=== PATIENT | male | born 1965 | race Caucasian/White ===

== ENCOUNTER → 2023-06-03 07:16 | Outpatient (REF) | payer BC, SELFPAY ==
[2023-06-04 22:22] LABS: % Free Testosterone 1.4 % (1.6-2.9); Free Testosterone 1 pg/mL (47-244); Sex Hormone Binding Globulin 44 nmol/L (19-76); Total Testosterone 6 ng/dL (300-720)
== END ==
LOC: REG 07:16
PROVIDERS: ATTENDING PHYSICIAN Anesthesiology Pain Medicine; FAMILY PHYSICIAN Family Medicine
DX: M54.12 Radiculopathy, cervical region (principal); M25.561 Pain in right knee; Z51.81 Encounter for therapeutic drug level monitoring; G89.4 Chronic pain syndrome; F11.90 Opioid use, unspecified, uncomplicated; R79.89 Other specified abnormal findings of blood chemistry
CPT/HCPCS: 36415; 84270; 84402; 84403

== ENCOUNTER → 2023-10-09 07:04 | Outpatient (REF) | payer BC, SELFPAY ==
[2023-10-09 07:51] LABS: % Basophils 0.8 % (0-2); % Eosinophils 7.4 % (0-6); % Immature Granulocytes 0.2 % (0-0.5); % Lymphocytes 18.1 % (20.5-51.1); % Monocytes 8.1 % (1.7-9.3); % Neutrophils 65.4 % (42.2-75.2); Absolute Basophils 0.1 10^3/uL (0-0.2); Absolute Eosinophils 0.4 10^3/uL (0-0.7); Absolute Lymphocytes 1.1 10^3/uL (1.2-3.4); Absolute Monocytes 0.5 10^3/uL (0.1-0.6); Absolute Neutrophils 3.9 10^3/uL (1.4-6.5); Hemoglobin 12.7 g/dL (13.0-18.0); Mean Corp Hgb Conc. 34.3 g/dL (33.0-37.0); Mean Corpuscular Hgb 30.8 pg (27.0-31.0); Mean Corpuscular Volume 89.8 fL (80.0-94.0); Nucleated Red Blood Cells % 0 % (-); Platelet Count 197 10^3/uL (130-400); Red Blood Cell Count 4.12 10^6/uL (4.70-6.10); Red Cell Dist. Width 12.8 % (11.5-14.5); White Blood Cell Count 5.9 10^3/uL (4.8-10.8)
[2023-10-09 08:14] LABS: ALT (SGPT) 13 U/L (0-50); AST (SGOT) 19 U/L (17-59); Albumin 4.2 g/dl (3.5-5.0); Alkaline Phosphatase 59 U/L (38-126); Blood Urea Nitrogen 17 mg/dl (9-20); Calcium 9.3 mg/dl (8.4-10.2); Carbon Dioxide 27 mmol/L (22-30); Chloride 103 mmol/L (98-107); Glucose 110 mg/dl (70-99); HDL Cholesterol 60 mg/dl; LDL Cholesterol, Calculated 101 mg/dl; Potassium 4.1 mmol/L (3.5-5.1); Sodium 142 mmol/L (135-145); Total Bilirubin 0.4 mg/dl (0.2-1.3); Total Cholesterol 189 mg/dl (50-199); Total Protein 6.6 g/dl (6.3-8.2); Triglyceride 141 mg/dl (10-149); Very Low Density Lipoprotein 28 mg/dl (0-30); eGFR > 60.00
[2023-10-09 08:41] LABS: TSH 2.32 uIU/ml (0.47-4.68)
[2023-10-09 09:04] LABS: Glycohemoglobin (HgbA1c) 5.5 % (4.0-5.6)
[2023-10-09 10:51] LABS: Vitamin B12 305 pg/ml (239-931)
== END ==
LOC: REG 07:04
PROVIDERS: ATTENDING PHYSICIAN Family Medicine
DX: R73.03 Prediabetes (principal)
CPT/HCPCS: 36415; 80053; 80061; 82607; 83036; 84443; 85025

== ENCOUNTER 2024-04-22 06:07 | Day surgery (SDC) | payer BC, SELFPAY ==
[2024-03-30 11:12] LABS: Hematocrit 38.8 % (39.0-52.0); Hemoglobin 13.2 g/dL (13.0-18.0); Mean Corpuscular Hgb 30.3 pg (27.0-31.0); Mean Platelet Volume 10.1 fL (7.4-10.4); Platelet Count 202 10^3/uL (130-400); Red Blood Cell Count 4.36 10^6/uL (4.70-6.10); Red Cell Dist. Width 12.6 % (11.5-14.5)
[2024-03-30 11:59] LABS: ALT (SGPT) 18 U/L (0-50); AST (SGOT) 38 U/L (17-59); Albumin 4.9 g/dl (3.5-5.0); Alkaline Phosphatase 59 U/L (38-126); Blood Urea Nitrogen 17 mg/dl (9-20); Calcium 9.3 mg/dl (8.4-10.2); Carbon Dioxide 25 mmol/L (22-30); Chloride 100 mmol/L (98-107); Glucose 98 mg/dl (70-99); Potassium 4.1 mmol/L (3.5-5.1); Sodium 138 mmol/L (135-145); Total Bilirubin 0.8 mg/dl (0.2-1.3); Total Protein 7.5 g/dl (6.3-8.2); eGFR > 60.00
[2024-03-30 12:17] LABS: Glycohemoglobin (HgbA1c) 5.3 % (4.0-5.6)
[2024-03-30 14:07] VITALS: BMI 41.5
--- NOTE | 2024-04-07 09:44 | W.PREADMORTH ---
Ortho Preadmission Testing
-
Pain management post-procedure is to be initially handled by orthopedics.
This is the preference of his pain surgical instrument repair specialist, Dr. Velez from [facility].
Given this patient is a same-day surgery candidate, scripts for Oxycontin, Oxycodone, Decadron, Gabapentin, and Meloxicam were sent into the patient's [facility] prior to surgery.
Upon further review, I noticed his Oxycodone script said 1 tab for moderate pain, 2 if severe.
This was inadvertently written. Script should say 1-15 mg tab for moderate-severe pain up to every 6 hours as needed.
I tried to re-write this script; however, the patient already picked up this Rx on 04/02 per the PDMP.
Patient was called immediately today after error was noted.
Patient now aware to only take 1 tablet of 15 mg Oxycodone up to every 6 hours as needed. He did express understanding.
Dosing of his other pain medications was also further clarified on phone call.
Patient was told he would get a print out of his medications (both current and new) upon d/c.
--- NOTE | 2024-04-08 13:01 | VNURNOTE ---
Patient is scheduled for an elective L TKA on 04/22/24 - he is a same day patient with Dr Benitez. Spoke with patient prior to surgery. Introduced role of [facility] Liaison. Patient reports that he lives with his , daughter in a MULTI story home.
There are 2 steps to enter and a flight of 13 steps to the second floor.
He has a neb machine, cane and rolling walker.
His spouse had VN services but not for joint surgery or same day.
PCP is Dr Gen[facility]va Cramer.
Discussed [facility] joint protocol and post surgical plans.
Reviewed that he will have VN services initially and will then start outpatient PT.
Patient has a dog at home, pet policy reviewed. Patient verbalized understanding.
Patient selects [facility] for his home care needs and will go to [facility] for outpatient PT. Scheduled for 04/26.
Patient is in agreement with plan and states that his and family will be home with him. Advised to bring RW with him day of surgery. Referral placed in [facility].
Plan: [facility] per [facility] joint protocol on 04/22 then outpt PT on 04/26
[2024-04-19 14:13] VITALS: BMI 41.5
[2024-04-22] VITALS (11 sets, daily range): BP systolic 118–144; BP diastolic 64–88; PULSE 75; O2SAT 98
[2024-04-22] MEDS: CELEBREX 200 MG PO (07:01)
[2024-04-22] MEDS: NORMOSOL-R/PLASMALYTE-A 1000 IV ×2 (07:10→11:54)
[2024-04-22] MEDS: ROXICODONE 5 MG PO ×2 (11:31→12:30)
[2024-04-22] MEDS: TYLENOL 1000 MG PO (11:48)
[2024-04-22] MEDS: BACTROBAN NASAL 1 GRAM NASAL (11:52)
[2024-04-22] MEDS: ANCEF 5 IV (11:56)
== END 2024-04-22 13:25 | disposition home health service (06) ==
LOC: SDS 06:07
PROVIDERS: ATTENDING PHYSICIAN Orthopaedic Surgery; FAMILY PHYSICIAN Family Medicine
DX: M17.12 Unilateral primary osteoarthritis, left knee (principal); Z18.9 Retained foreign body fragments, unspecified material; Z98.890 Other specified postprocedural states
CPT/HCPCS: 27447; C1713; C1776; 36415; 73560; 80053; 83036; 85027; 87070; 93005; 97116; 97162

== ENCOUNTER → 2024-06-25 11:36 | Outpatient (REF) | payer BC, SELFPAY ==
[2024-06-25 14:18] LABS: PSA, Total - Screen 0.66 ng/ml (0.0-4.0)
== END ==
LOC: REG 11:36
PROVIDERS: ATTENDING PHYSICIAN Family Medicine
DX: Z00.00 Encounter for general adult medical examination without abnormal findings (principal); Z12.5 Encounter for screening for malignant neoplasm of prostate
CPT/HCPCS: 36415; 84443; G0103

== ENCOUNTER 2024-11-18 06:01 | Day surgery (SDC) | payer BC, SELFPAY ==
--- NOTE | 2024-06-28 12:00 | CM ---
CM spoke with patient via live telephone. Patient does have a history of VN with [facility] from previous surgery. [facility] is currently not on service. Patient does not have a history of SNF. Patient has all his DME. Patient is active with his PCP. Patient
has medication coverage.
PLAN: Home, [facility].
[2024-09-17 11:31] LABS: Hematocrit 36.3 % (39.0-52.0); Hemoglobin 11.9 g/dL (13.0-18.0); Mean Corp Hgb Conc. 32.8 g/dL (33.0-37.0); Mean Corpuscular Volume 88.1 fL (80.0-94.0); Platelet Count 215 10^3/uL (130-400); Red Cell Dist. Width 14.3 % (11.5-14.5)
[2024-09-17 11:48] LABS: Glycohemoglobin (HgbA1c) 5.3 % (4.0-5.6)
[2024-09-17 12:35] VITALS: BMI 41.4
[2024-09-17 12:51] LABS: ALT (SGPT) 13 U/L (0-50); AST (SGOT) 16 U/L (17-59); Albumin 4.2 g/dl (3.5-5.0); Alkaline Phosphatase 48 U/L (38-126); Blood Urea Nitrogen 15 mg/dl (9-20); Calcium 8.8 mg/dl (8.4-10.2); Carbon Dioxide 25 mmol/L (22-30); Chloride 106 mmol/L (98-107); Estimated Creatinine Clearance > 125 ml/min; Glucose 103 mg/dl (70-99); Potassium 4.2 mmol/L (3.5-5.1); Sodium 140 mmol/L (135-145); Total Protein 6.7 g/dl (6.3-8.2); eGFR > 60.00
--- NOTE | 2024-09-17 15:11 | HPS.HSE ---
Family Physician
-
Family Physician: [facility]
Chief Complaint
-
Advanced primary osteoarthritis of the right knee.
History of Present Illness
The patient is a 59-year-old morbidly obese, male presenting today for advanced primary osteoarthritis of the right knee. The patient previously underwent a left total knee arthroplasty in April [address] Juan C Benitez. He returns to
[facility] today with reports of significant right knee pain associated with his osteoarthritis. He notes that his current right knee pain is greatly interfering with his activities of daily living and is overall impacting his
quality of life. He has tried and failed multiple conservative treatment measures in the past for his right knee pain. These conservative treatment measures include activity modification, self directed therapeutic exercises, formal physical therapy,
corticosteroid injections, medical management with Tylenol and Percocet as needed, and the application of ice and/or heat. Recent x-ray findings of the right knee demonstrated [id number] arthrosis about the medial compartment of the knee with
varus deformity and patellofemoral [id number] arthrosis. He was determined to be in need of a right total knee arthroplasty. He denies any current complaints today such as chest pain, shortness of breath, palpitations, nausea, vomiting, diarrhea,
lightheadedness, dizziness, cough, sore throat, or fever.
Medical History
Past Medical History
Past Medical History: Reports Other
Additional Past Medical History:
1. Osteoarthritis, status post left total knee arthroplasty, 04/2024, by Dr. Juan C Benitez.
2. Paroxysmal supraventricular tachycardia, maintaining sinus rhythm since ablation 2017.
3. Trace-mild aortic regurgitation.
4. Asthma, mild and intermittent.
5. Obstructive sleep apnea, compliant with CPAP (setting 14).
6. GERD.
7. Remote diverticulitis.
8. Nephrolithiasis.
9. Migraines.
10. Cervical degenerative disc disease with radiculopathy.
11. Sciatica.
12. Chronic pain syndrome with chronic narcotic use.
13. Nocturia.
14. Reported urinary retention after left total knee arthroplasty.
15. Mild anemia.
16. Depression.
17. Chronic idiopathic urticaria.
18. Morbid obesity, BMI 41.4.
19. History of tobacco abuse.
Past Surgical History: Reports Other
Additional Past Surgical History:
1. Left total knee arthroplasty, 04/2024, by Dr. Juan C Benitez.
2. Left knee ACL repair.
3. Right knee meniscus repair.
4. Bilateral rotator cuff repairs.
5. Umbilical and supraumbilical hernia repair with mesh.
6. SVT ablation.
7. Hernia repair in infancy.
8. Multiple epidural steroid injections.
9. Colonoscopy.
Social History
Tobacco: Former Smoker (He is a former one pack per day cigarette smoker who quit tobacco products altogether 32 years ago.)
Alcohol: None
Personal:
Living: Other (The patient lives in a two-story home with his spouse, his daughter, and his daughter's boyfriend. He reportedly has a stair lift to transport him from the 1st to 2nd floor. )
Family History
Family History: Not pertinent
Allergies / Home Medications
Allergy/Medication List:
HOME MEDICATIONS:
1. Albuterol sulfate 0.63 mg inhaled every four hours as needed.
2. Albuterol-budesonide two inhalations daily every 6 hours as needed.
3. Ascorbic acid 1000 mg p.o. daily.
4. Pulmicort 0.25 mg inhaled twice a day as needed.
5. Calcium and vitamin D3 one tablet p.o. daily.
6. Cholecalciferol 1000 units p.o. daily.
7. Montelukast 10 mg p.o. daily.
8. Centrum multivitamin one tablet p.o. daily.
9. Percocet 10-325 mg, one tablet p.o. four times a day as needed.
10. Zepbound 10 mg subcutaneous on Fridays.
11. Vitamin E 1000 units p.o. daily.
12. Pregabalin 75 mg p.o. daily.
13. Acetaminophen 1000 mg p.o. every 6 hours.
ALLERGIES: Seasonal. No known drug allergies.
Review of Systems
-
A 12 point ROS was completed and negative except as noted: Yes
Physical Exam
Vital Signs
Blood pressure 141/90. Heart rate 67. Respirations 18. Pulse ox 99% on room air.
Height 5 feet, 8 inches. Weight 123.5 kg. BMI 41.4.
Physical Exam
General: Well Developed, Well Nourished and No Apparent Distress
HEENT: NormoCephalic, Moist mucous membranes, Atraumatic and PERRLA
Respiratory: Clear
Cardiac: Regular Rhythm
GI: Soft, Non Tender, Non Distended and Other (Morbidly obese. )
Musculoskeletal: No Edema and Other (Right knee with hypertrophic changes.�Small effusion noted. Range of motion is 0 to 125 degrees. No tenderness range of motion of his hip or ankle.�No ligamentous instability. Medial joint line tenderness and
tenderness with patellofemoral grind.�Good strength. Ambulates with assistive device. )
Skin: Warm and Dry
Neuro: AO x 3 and Nonfocal/grossly intact
Laboratory Results
-
09/17/24 10:59
09/17/24 10:59
Laboratory Results
Total Bilirubin 0.5 mg/dl (0.2-1.3) 09/17/24 10:59
AST 16 U/L (17-59) L 09/17/24 10:59
ALT 13 U/L (0-50) 09/17/24 10:59
Alkaline Phosphatase 48 U/L (38-126) 09/17/24 10:59
Type and screen O positive.
MRSA nasal screen negative.
EKG 09/17/2024: Normal sinus rhythm.
Echocardiogram 02/18/2023: Ejection fraction is 60%. Mildly increased wall thickness with normal geometry. Trace to mild aortic regurgitation. Estimated pulmonary artery pressure of 21 mmHg, assuming a right atrial pressure of 3 mmHg. Compared to
the prior study dated 05/16/2017, there is no significant change.
Impression/Plan
-
CLEARANCES:
1. Primary medical, Dr. Genoveva Cramer, pending.
Primary medical phone number: [phone].
2. Dental waived.
IMPRESSION/PLAN:
1. Advanced primary osteoarthritis of the right knee in need of a right total knee arthroplasty by Dr. Juan C Benitez on 10/07/2024. The benefits and risks of the procedure have been explained to the patient. The patient understands these risks and
wishes to proceed.
2. Deep vein thrombosis prophylaxis: Aspirin with bilateral venous compression devices.
3. Pain management: The patient has stable comorbidities as referenced by his primary care physician and is medically optimized to proceed as a Same-Day Surgery candidate on 10/07/2024. The patient's pain will initially be managed by orthopedics, as
per the preference of his pain management nurse practitioner Dr. Kavita Velez. Pain medications will include a MS Contin taper, Oxycodone 15 mg p.o. every 6 hours as needed for severe breakthrough pain, Tylenol, Meloxicam, Gabapentin, and Decadron. He has
been advised to take 1 MS Contin 15 mg tablet prior to his arrival time.
4. Post-operative urinary retention: The patient reports a history of post-operative urinary retention for which he needed straight catheterization. To assist with urination, he has been prescribed Flomax to be started 3 nights pre-operatively. He
will continue this medication for 7 days post-surgery. Voiding will be monitored prior to discharge.
5. Post-operative bowel regimen: The patient was advised to purchase Colace and Senokot for post-operative use. These will be taken twice a day post-procedure, regardless of oral intake, until he is having regular bowel movements. Adequate
hydration, early mobility as tolerated, and the minimization of opioids were also discussed juan c-operatively.
6. Elevated BMI: Due to his elevated BMI >35, he is considered to be at increased risk for post-operative infection. He will be started on Cefadroxil for one week post-surgery. Probiotic use will be highly encouraged while on this antibiotic. Of
note, he was advised to hold his Zepbound within one week of surgery.
Patient's phone number: [phone].
Patient's contact (Kirsten Waite - Spouse): [phone].
[2024-09-17 17:39] VITALS: BMI 41.4
--- NOTE | 2024-09-23 10:38 | VNURNOTE ---
Addendum entered by Dina Rey RN 10/04/24 14:06:
Chart reviewed. [facility] Surgery date changed to Oct 28. Verified w/Annita in [facility]. 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
Original Note:
Patient is scheduled for an elective R TKR on 10/07 - he is a same day patient with Dr Benitez. Spoke with patient prior to surgery. Introduced role of [facility] Liaison. Patient reports that he lives with his .
He has a rolling walker.
He had VN services after his prior L TKR and was same day surgery.
PCP is Dr Genoveva Cramer
Discussed [facility] joint protocol and post surgical plans.
Reviewed that he will have VN services initially and will then start outpatient PT.
Patient selects [facility] for his home care needs and will go to [facility] for outpatient PT. Scheduled for 10/12 .
Patient is in agreement with plan and states that his will be home with him. Advised to bring RW with him day of surgery. He has a dog at home and is aware and agreeable to home health pet policy. Referral placed in [facility].
Plan: [facility] per [facility] joint protocol 10/07 then outpt PT on 10/12
[2024-11-02 11:18] LABS: Hematocrit 35.0 % (39.0-52.0); Hemoglobin 11.4 g/dL (13.0-18.0); Mean Corp Hgb Conc. 32.6 g/dL (33.0-37.0); Mean Corpuscular Volume 87.7 fL (80.0-94.0); Platelet Count 224 10^3/uL (130-400); Red Cell Dist. Width 13.2 % (11.5-14.5)
[2024-11-02 11:23] LABS: ALT (SGPT) 13 U/L (0-50); AST (SGOT) 18 U/L (17-59); Albumin 4.1 g/dl (3.5-5.0); Alkaline Phosphatase 51 U/L (38-126); Blood Urea Nitrogen 17 mg/dl (9-20); Calcium 9.2 mg/dl (8.4-10.2); Carbon Dioxide 27 mmol/L (22-30); Chloride 104 mmol/L (98-107); Estimated Creatinine Clearance 124 ml/min; Glucose 90 mg/dl (70-99); Potassium 4.2 mmol/L (3.5-5.1); Sodium 139 mmol/L (135-145); Total Protein 6.9 g/dl (6.3-8.2); eGFR > 60.00
[2024-11-02 11:46] LABS: Glycohemoglobin (HgbA1c) 5.3 % (4.0-5.6)
[2024-11-02 14:02] VITALS: BMI 43.3
[2024-11-02 16:42] VITALS: BMI 43.3
[2024-11-18] VITALS (14 sets, daily range): BP systolic 105–131; BP diastolic 64–87; PULSE 70; O2SAT 97; BMI 43.3
[2024-11-18] MEDS: CELEBREX 200 MG PO (07:02)
[2024-11-18] MEDS: NORMOSOL-R/PLASMALYTE-A 1000 IV (07:03)
[2024-11-18] MEDS: FLOMAX 0.4 MG PO (10:26)
[2024-11-18] MEDS: SUBLIMAZE 50 MCG IV (10:55)
== END 2024-11-18 12:45 | disposition home health service (06) ==
LOC: SDS 06:01
PROVIDERS: ATTENDING PHYSICIAN Orthopaedic Surgery; FAMILY PHYSICIAN Family Medicine; REFERRING PHYSICIAN Internal Medicine Cardiovascular Disease
DX: M17.11 Unilateral primary osteoarthritis, right knee (principal); E66.01 Morbid (severe) obesity due to excess calories; Z68.41 Body mass index [BMI] 40.0-44.9, adult; Z96.652 Presence of left artificial knee joint
CPT/HCPCS: 27447; 36415; 73560; 80053; 83036; 85027; 86850; 86900; 86901; 87070; 93005; 97162; 97530; C1713; C1776

== ENCOUNTER → 2024-11-18 13:48 | Outpatient (REF) | payer BC, SELFPAY | LOC: DHSLP 13:48 | PROVIDERS: ATTENDING PHYSICIAN Internal Medicine Critical Care Medicine; FAMILY PHYSICIAN Family Medicine | DX: G47.33 Obstructive sleep apnea (adult) (pediatric) (principal) | CPT/HCPCS: 95800 ==

== ENCOUNTER → 2025-01-21 09:29 | Outpatient (REF) | payer BC, SELFPAY ==
[2025-01-21 10:49] LABS: Hematocrit 38.1 % (39.0-52.0); Hemoglobin 12.5 g/dL (13.0-18.0); Mean Corp Hgb Conc. 32.8 g/dL (33.0-37.0); Mean Corpuscular Volume 89.9 fL (80.0-94.0); Nucleated Red Blood Cells % 0 % (-); Platelet Count 192 10^3/uL (130-400); Red Cell Dist. Width 14.4 % (11.5-14.5)
[2025-01-21 11:31] LABS: Glycohemoglobin (HgbA1c) 5.2 % (4.0-5.9)
[2025-01-21 11:34] LABS: ALT (SGPT) 13 U/L (0-50); AST (SGOT) 17 U/L (17-59); Albumin 4.4 g/dl (3.5-5.0); Alkaline Phosphatase 51 U/L (38-126); Blood Urea Nitrogen 13 mg/dl (9-20); Calcium 9.1 mg/dl (8.4-10.2); Carbon Dioxide 26 mmol/L (22-30); Chloride 105 mmol/L (98-107); Glucose 95 mg/dl (70-99); HDL Cholesterol 70 mg/dl; LDL Cholesterol, Calculated 103 mg/dl; Potassium 4.2 mmol/L (3.5-5.1); Sodium 137 mmol/L (135-145); Total Protein 7.3 g/dl (6.3-8.2); Very Low Density Lipoprotein 10 mg/dl (0-30); eGFR > 60.00
[2025-01-21 12:06] LABS: TSH 0.81 uIU/ml (0.47-4.68)
[2025-01-21 12:41] LABS: Folate 14.3 ng/ml (2.76-20); Vitamin B12 319 pg/ml (239-931)
== END ==
LOC: RCS 09:29
PROVIDERS: ATTENDING PHYSICIAN Nurse Practitioner Family; FAMILY PHYSICIAN Family Medicine
DX: F31.32 Bipolar disorder, current episode depressed, moderate (principal); F41.1 Generalized anxiety disorder; F41.0 Panic disorder [episodic paroxysmal anxiety]; F90.2 Attention-deficit hyperactivity disorder, combined type
CPT/HCPCS: 36415; 80053; 80061; 82248; 82607; 82652; 82746; 83036; 84443; 85025; 93005

== ENCOUNTER → 2025-01-25 10:41 | Outpatient (REF) | payer BC, SELFPAY | LOC: REG 10:41 | PROVIDERS: ATTENDING PHYSICIAN Family Medicine | DX: E29.1 Testicular hypofunction (principal) | CPT/HCPCS: 36415; 84403 ==